=== PATIENT | male | born 1955 | race Hispanic/Latino ===

== ENCOUNTER 2016-03-18 07:33 | Emergency (ER) | payer OTHER ==
--- NOTE | 2016-03-18 09:11 | REP ---
Clinical: Atraumatic pain and swelling. Technique: AP, lateral, bilateral oblique views of the left ankle. Findings: Mild diffuse swelling is appreciated. No acute or healed fracture. No dislocation. Ankle mortise and joint spaces are intact. No significant arthritic/degenerative changes. Impression: Mild swelling. Signed by Yamil Rosenberg MD 03/18/2016 09:02 A
--- NOTE | 2016-03-18 09:22 | EDDOCDS ---
Nurse's Notes [facility] Name: Ghassan Todd Age: 60 yrs Sex: Male : 1955 Arrival Date: 03/18/2016 Time: 07:33 Bed I5 / M5 Private MD: Diagnosis: Pain in left ankle and joints of left foot Presentation: 03/18 07:42 Presenting complaint: Patient states: "my left ankle is swollen and painful". Was seen jc4 by Dr. Callejas for same in 02/22, was told may be arthritis. Pt states medication that he was given caused him to have an upset stomach. Tylenol not effective. The patients lower extremity appears normal on examination. Suicide/Homicide risk assessment- the patient denies having any suicidal and/or homicidal ideations and does not present with any other emotional, behavioral or mental health complaints. Status: Retired [employer]. Transition of care: patient was not received from another setting of care. 07:42 Acuity: MIGUEL Level 4 jc4 07:42 Method Of Arrival: Walkin/Carried/Asstd jc4 09:21 Adult Sepsis Screening: The patient does not have new or worsening altered mentation. dls Patient's respiratory rate is less than 22. Systolic blood pressure is greater than 100. Patient has a qSOFA score of 0- Negative Sepsis Screen. Triage Assessment: 07:48 General: Appears in no apparent distress. Pain: Pain currently is 7 out of 10 on a pain jc4 scale. HIV screening NA for this visit Offered previously. Musculoskeletal: Capillary refill < 3 seconds No deformity noted Reports pain in left medial malleolus. Historical: - Allergies: PENICILLINS (Rash); - Home Meds: 1. omeprazole 20 mg Oral cpDR 1 cap 2 times per day (Last dose: 03/17/2016) 2. Tylenol Arthritis Pain 650 mg oral TbER 2 tabs every 8 hours (Last dose: 03/17/2016) - PMHx: Ulcers; Sleep Apnea w/ CPAP; - PSHx: Ulcer Surgery; - Social history: Smoking status: Patient states former smoker of tobacco. No barriers to communication noted, The patient speaks fluent [place]. - Family history: Not pertinent. - : The pt / caregiver states he / she is not on anticoagulants. Home medication list is obtained from the patient. - Exposure Risk Screening:: None identified. Screenin:18 Screening information is obtained from the patient. Primary language is [place]. Fall dls risk: No risks identified. Assistance ADL's: requires no assistance with activities of daily living. Abuse/DV Screen: The patient / caregiver reports he/she is: not in a situation that causes fear, pain or injury. Nutritional screening: No deficits noted. Advance Directives: Currently, there is no health care proxy. There is no active DNR order. There is no living will. 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 Advance directive information has not previously been placed in an [facility] medical record. home support is adequate. Assessment: 09:17 General: Appears in no apparent distress, well developed, well nourished, well groomed, dls Behavior is cooperative. Awake, alert, oriented. Skin warm and dry. Moves all extremities. Bilateral breath sounds clear. Respirations unlabored. Abdomen soft, non-tender. No apparent distress. The patient / caregiver is instructed regarding the plan of care and ED course. Vital Signs: 07:48 BP 150 / 105; Pulse 68; Resp 20; Temp 96.5(O); Pulse Ox 97% on R/A; Weight 114.31 kg; jc4 Height 5 ft. 11 in. (180.34 cm); Pain 7/10; 09:18 BP 141 / 92; Pulse 70; Resp 18; Temp 98.3(T); Pulse Ox 95% on R/A; Pain 7/10; dem1 07:48 Body Mass Index 35.15 (114.31 kg, 180.34 cm) [facility] Vitals: 07:48 Log In Time: March 18, 2016 at 07:30. [facility] ED Course: 07:36 Patient visited by Telly Galindo Reg. pm4 07:36 Patient moved to Waiting pm4 07:45 Triage Initiated jc4 07:51 Christy Ramirez, RN is Primary Nurse. jc4 07:51 Patient moved to I5 / M5 jc4 07:52 Waqar Deluca PA is PHCP. btw 07:52 Ishan Mccurdy MD is Attending Physician. btw 07:52 Patient visited by Waqar Deluca PA. btw 08:54 Patient visited by Christy Ramirez RN. dls 08:55 [facility] Payment Agreement was scanned into [email or web address] and attached to record. lg 09:08 [facility]. btw 09:18 Patient visited by Beth Castillo. dem1 09:18 Patient has correct armband on for positive identification. Bed in low position. Call dls light in reach. 09:20 No IV's were initiated during this patient's visit. No procedures done that require dls assistance. Order Results: There are currently no results for this order. Outcome: : Discharge ordered by Provider. btw 09:18 The following High Risk Discharge criteria are identified: None. Discharged to home dls ambulatory. Condition: stable. Discharge instructions given to patient, Instructed on discharge instructions, follow up and referral plans. Demonstrated understanding of instructions, Pt was receptive of discharge instructions/ teaching. No special radiology studies were completed. 09:20 Discharge Assessment: Patient awake, alert and oriented x 3. No cognitive and/or dls functional deficits noted. Patient verbalized understanding of disposition instructions. patient administered narcotics - no. The following High Risk Discharge criteria are identified: None. Discharged to home ambulatory. Property sent home with patient. 09:21 Patient left the ED. dls Signatures: Christy Ramirez, RN RN Sukumar Arnold, Reg Reg lg Waqar Deluca PA PA btw Jocelyne Springer RN RN jc4 Beth Castillo dem1 Telly Galindo, Reg Reg pm4 MTDD
--- NOTE | 2016-03-18 09:22 | EDDOCDS ---
Physician Documentation [facility] Name: Ghassan Todd Age: 60 yrs Sex: Male : 1955 Arrival Date: 03/18/2016 Time: 07:33 Bed I5 / M5 Private MD: Disposition: 03/18/16 09:09 Discharged to Home/Self Care. Impression: Pain in left ankle and joints of left foot. - Condition is Stable. - Discharge Instructions: Elastic Bandage and RICE, Stirrup Ankle Brace, [id number], Ankle Pain. - Medication Reconciliation, Local Pharmacy Hours form. - Follow up: Orthopaedics, [facility]; When: Call to arrange an appointment; Reason: Further diagnostic work-up, Recheck today's complaints, Continuance of care. - Problem is an ongoing problem. - Symptoms are unchanged. Historical: - Allergies: PENICILLINS (Rash); - Home Meds: 1. omeprazole 20 mg Oral cpDR 1 cap 2 times per day (Last dose: 03/17/2016) 2. Tylenol Arthritis Pain 650 mg oral TbER 2 tabs every 8 hours (Last dose: 03/17/2016) - PMHx: Ulcers; Sleep Apnea w/ CPAP; - PSHx: Ulcer Surgery; - Social history: Smoking status: Patient states former smoker of tobacco. No barriers to communication noted, The patient speaks fluent Romanian. - Family history: Not pertinent. - : The pt / caregiver states he / she is not on anticoagulants. Home medication list is obtained from the patient. - Exposure Risk Screening:: None identified. Vital Signs: 03/18 07:48 BP 150 / 105; Pulse 68; Resp 20; Temp 96.5(O); Pulse Ox 97% on R/A; Weight 114.31 kg / jc4 252.01 lbs; Height 5 ft. 11 in. (180.34 cm); Pain 7/10; 09:18 BP 141 / 92; Pulse 70; Resp 18; Temp 98.3(T); Pulse Ox 95% on R/A; Pain 7/10; dem1 07:48 Body Mass Index 35.15 (114.31 kg, 180.34 cm) jc4 MDM: 08:01 Ankle, Complete Ordered. EDMS 08:25 Financial registration complete. lg 08:55 [facility] Payment Agreement was scanned into [employer] and attached to record. lg 09:08 Chet Wrap ordered. btw 09:08 Apply Air Cast to Patient. ordered. btw Signatures: Dispatcher [employer] Christy Shaikh, REGLA ARAUZ dls Sukumar Mas, Reg Reg lg Waqar Deluca PA PA btw Jocelyne Springer RN RN jc4 The chart was reviewed and I authenticate all verbal orders and agree with the evaluation and treatment provided.Attachments: 08:55 [facility] Payment Agreement lg MTDD
--- NOTE | 2016-03-20 10:23 | EDDOCDS ---
Physician Documentation [facility] Name: Ghassan Todd Age: 60 yrs Sex: Male : 1955 Arrival Date: 03/18/2016 Time: 07:33 Bed I5 / M5 Private MD: Disposition: 03/18/16 09:09 Discharged to Home/Self Care. Impression: Pain in left ankle and joints of left foot. - Condition is Stable. - Discharge Instructions: Elastic Bandage and RICE, Stirrup Ankle Brace, [id number], Ankle Pain. - Medication Reconciliation, Local Pharmacy Hours form. - Follow up: Orthopaedics, [facility]; When: Call to arrange an appointment; Reason: Further diagnostic work-up, Recheck today's complaints, Continuance of care. - Problem is an ongoing problem. - Symptoms are unchanged. Historical: - Allergies: PENICILLINS (Rash); - Home Meds: 1. omeprazole 20 mg Oral cpDR 1 cap 2 times per day (Last dose: 03/17/2016) 2. Tylenol Arthritis Pain 650 mg oral TbER 2 tabs every 8 hours (Last dose: 03/17/2016) - PMHx: Ulcers; Sleep Apnea w/ CPAP; - PSHx: Ulcer Surgery; - Social history: Smoking status: Patient states former smoker of tobacco. No barriers to communication noted, The patient speaks fluent Frisian. - Family history: Not pertinent. - : The pt / caregiver states he / she is not on anticoagulants. Home medication list is obtained from the patient. - Exposure Risk Screening:: None identified. Vital Signs: 03/18 07:48 BP 150 / 105; Pulse 68; Resp 20; Temp 96.5(O); Pulse Ox 97% on R/A; Weight 114.31 kg / jc4 252.01 lbs; Height 5 ft. 11 in. (180.34 cm); Pain 7/10; 09:18 BP 141 / 92; Pulse 70; Resp 18; Temp 98.3(T); Pulse Ox 95% on R/A; Pain 7/10; dem1 07:48 Body Mass Index 35.15 (114.31 kg, 180.34 cm) jc4 MDM: 08:01 Ankle, Complete Ordered. EDMS 08:25 Financial registration complete. lg 08:55 [facility] Payment Agreement was scanned into [employer] and attached to record. lg 09:08 Chet Wrap ordered. btw 09:08 Apply Air Cast to Patient. ordered. btw 13:24 T-Sheet-- Draft Copy was scanned into [employer] and attached to record. gb Signatures: Dispatcher [employer] EDMS Christy Ramirez RN RN dls Glo Estrada, Reg Reg gb Sukumar Mas, Reg Reg lg Waqar Deluca PA PA btw Castle, Jennifer, RN RN jc4 The chart was reviewed and I authenticate all verbal orders and agree with the evaluation and treatment provided.Attachments: 08:55 [facility] Payment Agreement lg 13:24 T-Sheet-- Draft Copy gb Chart Complete MTDD
--- NOTE | 2016-03-20 10:23 | EDDOCDS ---
Nurse's Notes [facility] Name: Ghassan Todd Age: 60 yrs Sex: Male : 1955 Arrival Date: 03/18/2016 Time: 07:33 Bed I5 / M5 Private MD: Diagnosis: Pain in left ankle and joints of left foot Presentation: 03/18 07:42 Presenting complaint: Patient states: "my left ankle is swollen and painful". Was seen jc4 by Dr. Callejas for same in 02/22, was told may be arthritis. Pt states medication that he was given caused him to have an upset stomach. Tylenol not effective. The patients lower extremity appears normal on examination. Suicide/Homicide risk assessment- the patient denies having any suicidal and/or homicidal ideations and does not present with any other emotional, behavioral or mental health complaints. Status: Retired [employer]. Transition of care: patient was not received from another setting of care. 07:42 Acuity: MIGUEL Level 4 jc4 07:42 Method Of Arrival: Walkin/Carried/Asstd jc4 09:21 Adult Sepsis Screening: The patient does not have new or worsening altered mentation. dls Patient's respiratory rate is less than 22. Systolic blood pressure is greater than 100. Patient has a qSOFA score of 0- Negative Sepsis Screen. Triage Assessment: 07:48 General: Appears in no apparent distress. Pain: Pain currently is 7 out of 10 on a pain jc4 scale. HIV screening NA for this visit Offered previously. Musculoskeletal: Capillary refill < 3 seconds No deformity noted Reports pain in left medial malleolus. Historical: - Allergies: PENICILLINS (Rash); - Home Meds: 1. omeprazole 20 mg Oral cpDR 1 cap 2 times per day (Last dose: 03/17/2016) 2. Tylenol Arthritis Pain 650 mg oral TbER 2 tabs every 8 hours (Last dose: 03/17/2016) - PMHx: Ulcers; Sleep Apnea w/ CPAP; - PSHx: Ulcer Surgery; - Social history: Smoking status: Patient states former smoker of tobacco. No barriers to communication noted, The patient speaks fluent Belgian. - Family history: Not pertinent. - : The pt / caregiver states he / she is not on anticoagulants. Home medication list is obtained from the patient. - Exposure Risk Screening:: None identified. Screenin:18 Screening information is obtained from the patient. Primary language is Belgian. Fall dls risk: No risks identified. Assistance ADL's: requires no assistance with activities of daily living. Abuse/DV Screen: The patient / caregiver reports he/she is: not in a situation that causes fear, pain or injury. Nutritional screening: No deficits noted. Advance Directives: Currently, there is no health care proxy. There is no active DNR order. There is no living will. There is no Power of Digital Assistant. Advance directive information has not previously been placed in an [facility] medical record. home support is adequate. Assessment: 09:17 General: Appears in no apparent distress, well developed, well nourished, well groomed, dls Behavior is cooperative. Awake, alert, oriented. Skin warm and dry. Moves all extremities. Bilateral breath sounds clear. Respirations unlabored. Abdomen soft, non-tender. No apparent distress. The patient / caregiver is instructed regarding the plan of care and ED course. Vital Signs: 07:48 BP 150 / 105; Pulse 68; Resp 20; Temp 96.5(O); Pulse Ox 97% on R/A; Weight 114.31 kg; jc4 Height 5 ft. 11 in. (180.34 cm); Pain 7/10; 09:18 BP 141 / 92; Pulse 70; Resp 18; Temp 98.3(T); Pulse Ox 95% on R/A; Pain 7/10; dem1 07:48 Body Mass Index 35.15 (114.31 kg, 180.34 cm) [facility] Vitals: 07:48 Log In Time: March 18, 2016 at 07:30. [facility] ED Course: 07:36 Patient visited by Telly Galindo Reg. pm4 07:36 Patient moved to Waiting pm4 07:45 Triage Initiated jc4 07:51 Christy Ramirez, RN is Primary Nurse. jc4 07:51 Patient moved to I5 / M5 jc4 07:52 Waqar Deluca PA is PHCP. btw 07:52 Ishan Mccurdy MD is Attending Physician. btw 07:52 Patient visited by Waqar Deluca PA. btw 08:54 Patient visited by Christy Ramirez RN. dls 08:55 [facility] Payment Agreement was scanned into [employer] and attached to record. lg 09:08 [facility] btw 09:18 Patient visited by Beth Castillo. dem1 09:18 Patient has correct armband on for positive identification. Bed in low position. Call dls light in reach. 09:20 No IV's were initiated during this patient's visit. No procedures done that require dls assistance. 09:23 Ankle, Complete Returned. EDMS 13:24 T-Sheet-- Draft Copy was scanned into [employer] and attached to record. gb Order Results: Radiology Order: Ankle, Complete Test: Ankle, Complete REASON FOR EXAMINATION: atraumatic pain/swelling; Clinical: Atraumatic pain and swelling.; ; Technique: AP, lateral, bilateral oblique views of the left ankle.; ; Findings:; Mild diffuse swelling is appreciated. No acute or healed fracture. No; dislocation. Ankle mortise and joint spaces are intact. No significant; arthritic/degenerative changes.; ; Impression:; Mild swelling.; ; ; Signed by; Yamil Rosenberg MD 03/18/2016 09:02 A; Outcome: 09:09 Discharge ordered by Provider. btw 09:18 The following High Risk Discharge criteria are identified: None. Discharged to home dls ambulatory. Condition: stable. Discharge instructions given to patient, Instructed on discharge instructions, follow up and referral plans. Demonstrated understanding of instructions, Pt was receptive of discharge instructions/ teaching. No special radiology studies were completed. 09:20 Discharge Assessment: Patient awake, alert and oriented x 3. No cognitive and/or dls functional deficits noted. Patient verbalized understanding of disposition instructions. patient administered narcotics - no. The following High Risk Discharge criteria are identified: None. Discharged to home ambulatory. Property sent home with patient. 09:21 Patient left the ED. dls Signatures: Dispatcher [employer] EDMS Christy Ramirez RN RN dls Glo Estrada, Reg Reg gb Sukmuar Mas, Reg Reg lg Waqar Deluca PA PA btw Jocelyne Springer RN RN jc4 Beth Castillo dem1 Telly Galindo, Reg Reg pm4 Chart Complete MTDD
--- NOTE | 2016-03-20 10:23 | EDDOCDS ---
Physician Documentation [facility] Name: Ghassan Todd Age: 60 yrs Sex: Male : 1955 Arrival Date: 03/18/2016 Time: 07:33 Bed I5 / M5 Private MD: Disposition: 03/18/16 09:09 Discharged to Home/Self Care. Impression: Pain in left ankle and joints of left foot. - Condition is Stable. - Discharge Instructions: Elastic Bandage and RICE, Stirrup Ankle Brace, [id number], Ankle Pain. - Medication Reconciliation, Local Pharmacy Hours form. - Follow up: Orthopaedics, [facility]; When: Call to arrange an appointment; Reason: Further diagnostic work-up, Recheck today's complaints, Continuance of care. - Problem is an ongoing problem. - Symptoms are unchanged. Historical: - Allergies: PENICILLINS (Rash); - Home Meds: 1. omeprazole 20 mg Oral cpDR 1 cap 2 times per day (Last dose: 03/17/2016) 2. Tylenol Arthritis Pain 650 mg oral TbER 2 tabs every 8 hours (Last dose: 03/17/2016) - PMHx: Ulcers; Sleep Apnea w/ CPAP; - PSHx: Ulcer Surgery; - Social history: Smoking status: Patient states former smoker of tobacco. No barriers to communication noted, The patient speaks fluent Uzbek. - Family history: Not pertinent. - : The pt / caregiver states he / she is not on anticoagulants. Home medication list is obtained from the patient. - Exposure Risk Screening:: None identified. Vital Signs: 03/18 07:48 BP 150 / 105; Pulse 68; Resp 20; Temp 96.5(O); Pulse Ox 97% on R/A; Weight 114.31 kg / jc4 252.01 lbs; Height 5 ft. 11 in. (180.34 cm); Pain 7/10; 09:18 BP 141 / 92; Pulse 70; Resp 18; Temp 98.3(T); Pulse Ox 95% on R/A; Pain 7/10; dem1 07:48 Body Mass Index 35.15 (114.31 kg, 180.34 cm) jc4 MDM: 08:01 Ankle, Complete Ordered. EDMS 08:25 Financial registration complete. lg 08:55 [facility] Payment Agreement was scanned into [employer] and attached to record. lg 09:08 Chet Wrap ordered. btw 09:08 Apply Air Cast to Patient. ordered. btw 13:24 T-Sheet-- Draft Copy was scanned into [employer] and attached to record. gb Signatures: Dispatcher [employer] EDMS Christy Ramirez RN RN dls Glo Estrada, Reg Reg gb Sukumar Mas, Reg Reg lg Waqar Deluca PA PA btw Castle, Jennifer, RN RN jc4 The chart was reviewed and I authenticate all verbal orders and agree with the evaluation and treatment provided.Attachments: 08:55 [facility] [place] Agreement lg 13:24 T-Sheet-- Draft Copy gb Chart Complete MTDD
== END 2016-03-18 09:21 | disposition home or self-care (01) ==
LOC: M ED 07:33
DX: M25.572 Pain in left ankle and joints of left foot (principal); G47.30 Sleep apnea, unspecified; Z87.891 Personal history of nicotine dependence; Z79.899 Other long term (current) drug therapy; Z88.0 Allergy status to penicillin

== ENCOUNTER → 2016-08-07 | Outpatient (RCR) | payer OTHER | LOC: M PT 09:02 | PROVIDERS: ATTEND Physician Assistant Surgical | DX: Z51.89 Encounter for other specified aftercare (principal); M76.829 Posterior tibial tendinitis, unspecified leg ==

== ENCOUNTER 2016-09-02 08:12 | Outpatient (RCR) | payer OTHER | END 2016-09-06 | LOC: M PT 08:12 | PROVIDERS: ATTEND Physician Assistant Surgical | DX: Z51.89 Encounter for other specified aftercare (principal); M76.829 Posterior tibial tendinitis, unspecified leg ==

== ENCOUNTER 2016-09-11 08:38 | Outpatient (RCR) | payer OTHER | END 2016-10-07 | disposition home or self-care (01) | LOC: M PT 08:38 | PROVIDERS: ATTEND Physician Assistant Surgical | DX: Z51.89 Encounter for other specified aftercare (principal); M76.829 Posterior tibial tendinitis, unspecified leg; M21.42 Flat foot [pes planus] (acquired), left foot ==

== ENCOUNTER 2017-07-19 22:04 | Emergency (ER) | payer OTHER, MEDICAID ==
[2017-07-19] MEDS: MORPHINE 10 MG/ML 1ML VIAL (J2270) IM (23:12)
[2017-07-19] MEDS: ACETAMINOPHEN TAB 650MG DOSE (2X325MG) PO (23:20)
== END 2017-07-19 23:57 | disposition home or self-care (01) ==
LOC: M ED 22:04
DX: S80.11XA Contusion of right lower leg, initial encounter (principal); X58.XXXA Exposure to other specified factors, initial encounter; Y92.9 Unspecified place or not applicable; Y93.9 Activity, unspecified; Y99.0 Civilian activity done for income or pay; I10 Essential (primary) hypertension; Z79.899 Other long term (current) drug therapy; Z88.0 Allergy status to penicillin
CPT/HCPCS: 73590